=== PATIENT | male | born 1950 | race Caucasian/White ===

== ENCOUNTER 2025-02-15 07:26 | Inpatient (IN) | payer OTHER, MEDICARE ==
[2025-02-15 07:38] LABS: Glucose,Whole Blood 98 mg/dL (70-110)
--- NOTE | 2025-02-15 08:05 | ED ---
General Adult HPI - General Chief complaint: Neuro Symptoms/Deficit Stated complaint: off balance Time Seen by Provider: 02/15/25 07:43 Source: patient, family, EMS, RN notes reviewed Mode of arrival: EMS Limitations: no limitations - History of Present Illness Initial comments: Patient is a 74-year-old male present to the emergency department with concerns for being off balance. Last known well was last night. Patient has had 3 falls today without significant injury. Patient has abrasion to left elbow. Last tetanus immunization was 2 years ago. Patient has had intermittent confusion. Patient has had some slurred speech. Nurse was concern for some leg drift and triage. Patient is having difficulty walking. - Related Data Allergies Allergy/AdvReac Type Severity Reaction Status Date / Time No Known Allergies Allergy Verified 02/15/25 07:41 Review of Systems ROS Statement: Those systems with pertinent positive or pertinent negative responses have been documented in the HPI. ROS Other: All systems not noted in ROS Statement are negative. Constitutional: Denies: fever Eyes: Denies: eye pain ENT: Denies: ear pain Respiratory: Denies: dyspnea Cardiovascular: Denies: chest pain Neurological: Reports: as per HPI, confusion, abnormal gait. Denies: headache, weakness Past Medical History Past Medical History: Diabetes Mellitus Smoking Status: Former smoker Past Alcohol Use History: None Reported Past Drug Use History: None Reported General Exam Limitations: no limitations General appearance: alert, in no apparent distress Head exam: Present: atraumatic Eye exam: Present: normal appearance, PERRL, EOMI, nystagmus (Horizontal) ENT exam: Present: normal exam Neck exam: Present: normal inspection. Absent: tenderness Respiratory exam: Present: normal lung sounds bilaterally Cardiovascular Exam: Present: regular rate, normal rhythm GI/Abdominal exam: Present: soft. Absent: tenderness Extremities exam: Present: normal inspection, full ROM. Absent: tenderness Neurological exam: Present: alert, oriented X3, CN II-XII intact. Absent: motor sensory deficit Expanded Neurological exam: Present: ataxia, protecting the airway, other (Minimal slurred speech. Horizontal nystagmus. Difficulty with finger-nose testing on the left) Patient oriented to: Present: person, place, time Cranial nerves: EOM's Intact: Normal Cerebellar function: Finger to Nose: Abnormal Left Sensory exam: Upper Extremity Light Touch: Normal, Lower Extremity Light Touch: Normal Motor strength exam: RUE: 5, LUE: 5, RLE: 5, LLE: 5 Eye Response: (4) open spontaneously Motor Response: (6) obeys commands Verbal Response: (5) oriented Psychiatric exam: Present: normal affect, normal mood Skin exam: Present: abrasion Course Vital Signs 02/15/25 07:32 Temperature 97.9 F Pulse Rate 76 Respiratory 18 Rate Blood Pressure 120/80 O2 Sat by Pulse 96 Oximetry EKG Findings - EKG Results: EKG: interpreted by ERMD, sinus rhythm, normal axis, normal QRS, normal ST/T Medical Decision Making - Medical Decision Making 8:10 AM Case discussed with Dr. Valadez who agrees patient is not a candidate for tenecteplase. Risks felt to outweigh the benefits. Last known well is greater than 4.5 hours. Low NIH. He does recommend aspirin and Lipitor. Was pt. sent in by a medical professional or institution (, PA, SKILLED HELPER, urgent care, hospital, or half-way...) When possible be specific @ -No Did you speak to anyone other than the patient for history (EMS, parent, family, police, friend...)? What history was obtained from this source @ -Daughter is present and helps provide history including patient's symptoms as patient is a poor historian Did you review nursing and triage notes (agree or disagree)? Why? @ -I reviewed and agree with nursing and triage notes Were old charts reviewed (outside hosp., previous admission, EMS record, old EKG, old radiological studies, urgent care reports/EKG's, half-way records)? Report findings @ -No old charts were reviewed Differential Diagnosis (chest pain, altered mental status, abdominal pain women, abdominal pain men, vaginal bleeding, weakness, fever, dyspnea, syncope, headache, dizziness, GI bleed, back pain, seizure, CVA, palpatations, mental health, musculoskeletal)? @ -Differential Altered Mental Status: Hypoglycemia, DKA, hypercapnia, ETOH, overdose, CO poisoning, trauma, myxedema coma, HTN encephalopathy, infection, encephalitis, psychosis, intercranial hemorrhage, hepatic encephalopathy, meningitis, CVA, this is not meant to be an all-inclusive list EKG interpreted by me (3pts min.). @ -As above X-rays interpreted by me (1pt min.). @ -Chest x-ray shows no acute process CT interpreted by me (1pt min.). @ -CT scan of the brain without acute abnormality U/S interpreted by me (1pt. min.). @ -None done What testing was considered but not performed or refused? (CT, X-rays, U/S, labs)? Why? @ -None What meds were considered but not given or refused? Why? @ -See above Did you discuss the management of the patient with other professionals (professionals i.e. , PA, SKILLED HELPER, lab, RT, psych nurse, social insurance analyst, communications lead, teacher, ammunition officer, housing case manager)? Give summary @ -See above, case also discussed with Dr. Diaz who will admit covering Dr. Marquez Was smoking cessation discussed for >3mins.? @ -No Was critical care preformed (if so, how long)? @ -31 minutes critical care time Were there social determinants of health that impacted care today? How? (Homelessness, low income, unemployed, alcoholism, drug addiction, transportat ion, low edu. Level, literacy, decrease access to med. care, correction, rehab)? @ -No Was there de-escalation of care discussed even if they declined (Discuss DNR or withdrawal of care, Hospice)? DNR status @ -No What co-morbidities impacted this encounter? (DM, HTN, Smoking, COPD, CAD, Cancer, CVA, ARF, Chemo, Hep., AIDS, mental health diagnosis, sleep apnea, morbid obesity)? @ -None Was patient admitted / discharged? Hospital course, mention meds given and route, prescriptions, significant lab abnormalities, going to OR and other pertinent info. @ -Patient presents with several symptoms. Patient is off balance with several falls this morning. Patient has had some mild speech slurring which continues at times. Patient has had some intermittent confusion. Patient had difficulty with finger-nose testing on the left. Patient is not a tenecteplase candidate. Patient will be admitted with neurology consult. Patient reevaluated. Patient and family updated. Admission orders written. Undiagnosed new problem with uncertain prognosis? @ -No Drug Therapy requiring intensive monitoring for toxicity (Heparin, Nitro, Insulin, Cardizem)? @ -No Were any procedures done? @ -No Diagnosis/symptom? @ -CVA Acute, or Chronic, or Acute on Chronic? @ -Acute Uncomplicated (without systemic symptoms) or Complicated (systemic symptoms)? @ -Default Side effects of treatment? @ -No Exacerbation, Progression, or Severe Exacerbation? @ -No Poses a threat to life or bodily function? How? (Chest pain, USA, MS, pneumonia, PE, COPD, DKA, ARF, appy, cholecystitis, CVA, Diverticulitis, Homicidal, Suicidal, threat to staff... and all critical care pts) @ -Threat to neurological function - Lab Data Result diagrams: 02/15/25 08:05 02/15/25 08:05 Lab Results 02/15/25 02/15/25 02/15/25 Range/Units 07:36 08:05 08:05 WBC 8.5 (3.8-10.6) k/uL RBC 4.13 L (4.30-5.90) m/uL Hgb 13.2 (13.0-17.5) gm/dL Hct 39.6 (39.0-53.0) % MCV 95.9 (80.0-100.0) fL MCH 31.9 (25.0-35.0) pg MCHC 33.3 (31.0-37.0) g/dL RDW 12.3 (11.5-15.5) % Plt Count 215 (150-450) k/uL MPV 7.9 Neutrophils % 74 % Lymphocytes % 14 % Monocytes % 6 % Eosinophils % 3 % Basophils % 0 % Neutrophils # 6.3 (1.3-7.7) k/uL Lymphocytes # 1.2 (1.0-4.8) k/uL Monocytes # 0.5 (0-1.0) k/uL Eosinophils # 0.2 (0-0.7) k/uL Basophils # 0.0 (0-0.2) k/uL PT 10.7 (10.0-12.5) sec INR 1.0 (<1.2) APTT 25.7 (22.0-30.0) sec Sodium (137-145) mmol/L Potassium (3.5-5.1) mmol/L Chloride (98-107) mmol/L Carbon Dioxide (22-30) mmol/L Anion Gap mmol/L BUN (9-20) mg/dL Creatinine (0.66-1.25) mg/dL Est GFR (CKD-EPI)AfAm (>60 ml/min/1.73 sqM) Est GFR (CKD-EPI)NonAf (>60 ml/min/1.73 sqM) Glucose (74-99) mg/dL POC Glucose (mg/dL) 98 (70-110) mg/dL POC Glu Brusher Tender ID Jake Brittney Calcium (8.4-10.2) mg/dL Total Bilirubin (0.2-1.3) mg/dL AST (17-59) U/L ALT (4-49) U/L Alkaline Phosphatase (38-126) U/L Creatine Kinase (55-170) U/L Total Protein (6.3-8.2) g/dL Albumin (3.5-5.0) g/dL 02/15/25 Range/Units 08:05 WBC (3.8-10.6) k/uL RBC (4.30-5.90) m/uL Hgb (13.0-17.5) gm/dL Hct (39.0-53.0) % MCV (80.0-100.0) fL MCH (25.0-35.0) pg MCHC (31.0-37.0) g/dL RDW (11.5-15.5) % Plt Count (150-450) k/uL MPV Neutrophils % % Lymphocytes % % Monocytes % % Eosinophils % % Basophils % % Neutrophils # (1.3-7.7) k/uL Lymphocytes # (1.0-4.8) k/uL Monocytes # (0-1.0) k/uL Eosinophils # (0-0.7) k/uL Basophils # (0-0.2) k/uL PT (10.0-12.5) sec INR (<1.2) APTT (22.0-30.0) sec Sodium 136 L (137-145) mmol/L Potassium 4.8 (3.5-5.1) mmol/L Chloride 102 (98-107) mmol/L Carbon Dioxide 25 (22-30) mmol/L Anion Gap 9 mmol/L BUN 23 H (9-20) mg/dL Creatinine 1.74 H (0.66-1.25) mg/dL Est GFR (CKD-EPI)AfAm 43 (>60 ml/min/1.73 sqM) Est GFR (CKD-EPI)NonAf 38 (>60 ml/min/1.73 sqM) Glucose 100 H (74-99) mg/dL POC Glucose (mg/dL) (70-110) mg/dL POC Glu Brusher Tender ID Calcium 9.1 (8.4-10.2) mg/dL Total Bilirubin 0.7 (0.2-1.3) mg/dL AST 19 (17-59) U/L ALT 20 (4-49) U/L Alkaline Phosphatase 85 (38-126) U/L Creatine Kinase 83 (55-170) U/L Total Protein 6.7 (6.3-8.2) g/dL Albumin 4.0 (3.5-5.0) g/dL Disposition Clinical Impression: Cerebrovascular accident (CVA) Disposition: ADMITTED IP TO THIS HOSP Is patient prescribed a controlled substance at d/c from ED?: No Referrals: Chon Marquez MD [Primary Care Provider] - 1-2 days Time of Disposition: 08:59
[2025-02-15 08:16] LABS: Basophils % (A) 0 %; Eosinophils # (A) 0.2 k/uL (0-0.7); Eosinophils % (A) 3 %; HCT 39.6 % (39.0-53.0); HGB 13.2 gm/dL (13.0-17.5); Lymphocytes # (A) 1.2 k/uL (1.0-4.8); Lymphocytes % (A) 14 %; MCH 31.9 pg (25.0-35.0); MCHC 33.3 g/dL (31.0-37.0); MCV 95.9 fL (80.0-100.0); Mean Platelet Volume 7.9; Monocytes # (A) 0.5 k/uL (0-1.0); Monocytes % (A) 6 %; Neutrophils # (A) 6.3 k/uL (1.3-7.7); Neutrophils % (A) 74 %; Platelet Count 215 k/uL (150-450); RBC 4.13 m/uL (4.30-5.90); RDW 12.3 % (11.5-15.5); WBC 8.5 k/uL (3.8-10.6)
--- NOTE | 2025-02-15 08:23 | CT ---
EXAMINATION TYPE: CT brain wo con DATE OF EXAM: 02/15/2025 COMPARISON: NONE CLINICAL INDICATION: Male, 74 years old with history of Neuro deficit, acute, stroke suspected, ams TECHNIQUE: CT scan of the head is performed without contrast. CT DLP: 1137.3 mGycm. Automated Exposure Control for Dose Reduction was Utilized. FINDINGS: There is no acute intracranial hemorrhage or midline shift identified. There is mild-to-m oderate diffuse ventricular and sulcal prominence consistent with diffuse age-related cerebral atroph y. There is moderate low-attenuation in the periventricular white matter consistent with chronic sma ll vessel ischemic change patient this age. Scleral calcifications bilaterally are present. The visu alized sinuses are clear. IMPRESSION: No acute intracranial hemorrhage or midline shift. If clinical concern for acute stroke persists further investigation with MRI study would be warranted . [facility], , 02/15/2025 8:21 AM
[2025-02-15 08:27] LABS: ALT 20 U/L (4-49); AST 19 U/L (17-59); African American GFR (CKD) 43 (>60 ml/min/1.73 sqM); Alkaline Phosphatase 85 U/L (38-126); Anion Gap 9 mmol/L; Blood Urea Nitrogen 23 mg/dL (9-20); Calcium 9.1 mg/dL (8.4-10.2); Carbon Dioxide 25 mmol/L (22-30); Chloride 102 mmol/L (98-107); Creatine Kinase 83 U/L (55-170); Glucose 100 mg/dL (74-99); Non-African American GFR(CKD) 38 (>60 ml/min/1.73 sqM); Partial Thromboplastin Time 25.7 sec (22.0-30.0); Potassium 4.8 mmol/L (3.5-5.1); Prothrombin Time 10.7 sec (10.0-12.5); Sodium 136 mmol/L (137-145); Total Bilirubin 0.7 mg/dL (0.2-1.3); Total Protein 6.7 g/dL (6.3-8.2)
--- NOTE | 2025-02-15 08:34 | XR ---
EXAMINATION TYPE: XR chest 2V DATE OF EXAM: 02/15/2025 CLINICAL INDICATION: Male, 74 years old with history of altered mental status, TECHNIQUE: Frontal and lateral views of the chest are obtained. COMPARISON: None FINDINGS: There is no focal air space opacity, pleural effusion, or pneumothorax seen. The cardiac silhouette size is upper limits of normal with atherosclerotic thoracic aorta. The osseous structur es are intact. IMPRESSION: No acute cardiopulmonary process. [facility], , 02/15/2025 8:32 AM
--- NOTE | 2025-02-15 08:46 | CT ---
EXAMINATION TYPE: CT angio head neck DATE OF EXAM: 02/15/2025 COMPARISON: NONE CLINICAL INDICATION: Male, 74 years old with history of Neuro deficit, acute, stroke suspected, AMS, TECHNIQUE: CTA scan of the head and neck is performed with IV Contrast, patient injected with 65 ml mL of Isovue 370, axial images are obtained, coronal and sagittal reformatted images are reviewed. 3D reconstructed images are created on an independent workstation and reviewed. NASCET criteria was use d in interpretation of this exam? CT DLP: 597.4 mGycm. Automated Exposure Control for Dose Reduction was Utilized. FINDINGS: Vertebral arteries: The vertebral arteries are patent. Vertebral artery dominance: Left Basilar artery: The basilar artery is intact. Internal Carotid arteries: Mild peripheral distal plaque bilaterally. KIRAN: Absent right A1 segment with filling of the right A2 segment due to patent anterior communicatin g artery. ACOM: Present without evidence of aneurysm. MCA: Patent with no evidence of aneurysm. LEAD JANITOR: Patent with no evidence of aneurysm. PCOM: Hypoplastic bilaterally. Dural sinuses: Patent. CTA NECK: Right Carotid System: The common carotid artery and external carotid artery are patent. The carotid bifurcation demonstrate s no evidence of hemodynamically significant stenosis. Jxlk-sp-[id number] peripheral mixed plaque is pr esent. The remaining portions of the internal carotid artery demonstrate normal size without signific ant narrowing. Left Carotid System: The common carotid artery and external carotid artery are patent. The carotid bifurcation demonstrate s no evidence of hemodynamically significant stenosis. Mild peripheral mixed plaque is present. The r emaining portions of the internal carotid artery demonstrate normal size without significant narrowin g. Vertebral arteries are patent without evidence hemodynamically significant stenosis. There is a three-vessel aortic arch. The origins of the great vessels are patent. No evidence of hemo dynamically significant stenosis. There is 4.5 cm heterogeneous enhancing right thyroid nodule on coronal image 30 which warrants follo w-up IMPRESSION: No evidence of significant stenosis at the carotid bifurcations. No evidence of large vessel occlusion or intracranial aneurysm. Incidental 4.5 cm right thyroid nodule. Nonemergent thyroid ultrasound follow-up is advised to furthe r evaluate and characterize. [facility], , 02/15/2025 8:44 AM
[2025-02-15] MEDS: ASPIRIN 325 MG TAB PO STA (09:44)
[2025-02-15] MEDS: SODIUM CHLORIDE 0.9% 1,000 ML IV SCH (09:44)
--- NOTE | 2025-02-15 13:11 | P.CNNES ---
History of Present Illness Consult date: 02/15/25 Requesting physician: Kali Agarwal Reason for Consult: cva concern History of Present Illness: This is a 74-year-old gentleman who presented to hospital because of fall. He is accompanied with his granddaughter who helps with some of the history. He stated that today he was trying to get something from bed and as he was trying to stand up he got dizzy and went down he did not think he lost consciousness but per the granddaughter maybe he did lose consciousness for 1 to 2 minutes. Patient denies any urinary incontinence but according to the granddaughter according to his he did have urinary incontinence. Patient felt his legs were weak and he did not have the strength as well as hands were weak and could not pull himself. According to granddaughter he fell 3 times. It seems that he fell a year ago. Unknown cause what caused his fall. But according the patient his falls is due to his underlying medical condition because of his diabetes kidney insufficiency. No history of stroke no history of seizures. Patient does take aspirin 81 mg. According to granddaughter today when he was doing the [id number] on the left hand was off but now overall he is doing better. Patient denies any tobacco use any alcohol use or any illicit drug use. Some of the workup during this hospital visit consisted of: Reviewed the rest of the lab workup. CT of the head is reported as no acute intracranial hemorrhage or midline shift. I personally reviewed the CT and I agree with the report. CT angiography of the head and neck is reported as no evidence of significant stenosis at the carotid bifurcation. No evidence of large vessel occlusion or intracranial aneurysm. Incidental 4.5 cm right thyroid nodule. Review of Systems As per HPI. Past Medical History Past Medical History: Diabetes Mellitus Smoking Status: Former smoker Past Alcohol Use History: None Reported Past Drug Use History: None Reported Medications and Allergies Home Medications Medication Instructions Recorded Confirmed Type Albuterol Sulfate [Albuterol 1 puff PO RT-Q4H PRN 02/15/25 02/15/25 History Sulfate Hfa] Doxepin [SINEquan] 20 mg PO HS 02/15/25 02/15/25 History Finasteride [Proscar] 5 mg PO DAILY 02/15/25 02/15/25 History Gabapentin [Neurontin] 300 mg PO TID 02/15/25 02/15/25 History Insulin Aspart [NovoLOG Flexpen] 8 - 10 units SQ AC-TID 02/15/25 02/15/25 History Insulin Glargine,Hum.rec.anlog 35 units SQ HS 02/15/25 02/15/25 History [Lantus Solostar Pen] Ketorolac 0.5% Ophth Soln [Acular 1 drops RIGHT EYE QID 02/15/25 02/15/25 History 0.5%] Levothyroxine Sodium [Synthroid] 50 mcg PO DAILY 02/15/25 02/15/25 History Losartan [Cozaar] 25 mg PO DAILY 02/15/25 02/15/25 History Rosuvastatin Calcium [Crestor] 20 mg PO DAILY 02/15/25 02/15/25 History SITagliptin [Zituvio] 50 mg PO DAILY 02/15/25 02/15/25 History Sertraline [Zoloft] 200 mg PO DAILY 02/15/25 02/15/25 History Tamsulosin HCl [Flomax] 0.4 mg PO DAILY 02/15/25 02/15/25 History Zolpidem [Ambien] 10 mg PO HS 02/15/25 02/15/25 History Allergies Allergy/AdvReac Type Severity Reaction Status Date / Time empagliflozin Allergy Unknown Verified 02/15/25 10:21 nifedipine Allergy Unknown Verified 02/15/25 10:21 pioglitazone [From Actos] Allergy Unknown Verified 02/15/25 10:21 Physical Examination - Vital Signs Vital Signs: Vital Signs Temp Pulse Resp BP Pulse Ox 02/15/25 11:40 62 16 121/92 98 02/15/25 11:00 66 18 120/83 98 02/15/25 10:00 63 18 135/89 96 02/15/25 09:00 61 16 136/91 96 02/15/25 08:30 67 14 119/83 97 02/15/25 07:32 97.9 F 76 18 120/80 96 Intake and Output 02/14/25 02/15/25 02/15/25 22:59 06:59 14:59 Other: Weight 99.79 kg GENERAL: The patient is lying in bed and is not in acute distress. NEUROLOGICAL: Higher mental function: The patient is awake, alert, oriented to self, place and time. Patient is following commands. No aphasia and no neglect. Cranial nerves: The pupils are round, equal and reactive to light and accommodation. Visual jose are full to confrontation throughout. Extraocular movement is intact no nystagmus is noted. Facial sensation is normal to touch throughout. The facial strength is normal throughout. Hearing is severely hearing loss bilaterally to hand rub. Tongue is midline and moved mzrj-[id number] without any difficulty. No dysarthria is noted. Shoulder shrug is normal bilaterally. Motor: The strength is 5 over 5 throughout. Normal tone and bulk. Cerebellum: Normal finger to nose bilaterally. Sensation: Sensation is normal to touch throughout. Reflexes (right/left): 2+ throughout. Plantars are downgoing bilaterally. Results - Laboratory Findings CBC and BMP: 02/15/25 08:05 02/15/25 08:05 Abnormal Lab Findings: Abnormal Labs 02/15/25 02/15/25 08:05 08:05 RBC 4.13 L Sodium 136 L BUN 23 H Creatinine 1.74 H Glucose 100 H Assessment and Plan Assessment: Patient is a 74-year-old gentleman who presents emergency department because of a fall and according to the granddaughter he lost consciousness for 2 minutes. Seems that he had urinary continence. He had 2 further falls. He had leg weakness as well as hand weakness. No history of seizures. According to grand daughter earlier today while in the ED the [id number] on the left was off. But currently he is doing better. Recurrent falls with arm weakness and hand weakness with loss of consciousness and urinary incontinence: Unknown exact cause. Hypertension Chronic kidney disease Diabetes mellitus Plan: Ordered MRI of the brain I ordered a routine EEG 2D echo, lipid panel is ordered and is pending Patient started on aspirin 325 daily by the ED team. Prior to this the patient was on aspirin at home. He is also started on Lipitor 80 mg nightly by the ED team I will hold off any dual antiplatelet until the rest of the workup Continue neurochecks Cardiac monitoring PT OT and CHEST PAINTING LEADER are consulted Ordered Vitamin B12, folate, TSH. Will defer the rest of the medical management to primary and other specialist For DVT prophylaxis I started the patient on subcu heparin 5000 units every 12 hours Plan discussed with the patient and his granddaughter who is at bedside Thank you for the consultation peer Time with Patient: Greater than 30
[2025-02-15] MEDS ORDERED: ALBUTEROL NEBULIZED 2.5 MG/3 ML INHALATION PRN (14:25)
[2025-02-15] MEDS ORDERED: DEXTROSE 50% SYRINGE 50 ML IVP PRN ×2 (14:26)
[2025-02-15] MEDS: HEPARIN SODIUM,PORCINE 5,000 UNIT/ML 1 ML VIAL SQ SCH (14:32)
[2025-02-15] MEDS: KETOROLAC 0.5% OPHTH DROPS 5 ML BTL RIGHT EYE SCH (17:01)
[2025-02-15 17:19] LABS: Glucose,Whole Blood 115 mg/dL (70-110)
[2025-02-15] MEDS: INSULIN LISPRO (HumaLOG) 100 UNIT/ML 10 mL VL SQ SCH (17:38)
[2025-02-15] MEDS: THIAMINE 100 MG TAB PO SCH (19:48)
[2025-02-15 20:33] LABS: Glucose,Whole Blood 130 mg/dL (70-110)
[2025-02-15] MEDS: ZOLPIDEM 5 MG TAB PO SCH (20:38)
[2025-02-15] MEDS: ATORVASTATIN 80 MG TAB PO SCH (20:39)
[2025-02-15] MEDS: INSULIN GLARGINE (LANTUS) 100 UNIT/ML SYR SQ SCH (21:06)
[2025-02-15] MEDS: ACETAMINOPHEN TAB 325 MG TAB PO PRN (21:06)
--- NOTE | 2025-02-15 21:33 | HP ---
HISTORY AND PHYSICAL CHIEF COMPLAINT: Ataxia as well as fall. HISTORY OF PRESENT ILLNESS: This 74-year-old gentleman with a past medical history of multiple medical problems, diabetes mellitus type 2, peripheral neuropathy, and back pain, being followed by Dr. Marquez in the outpatient of walking, which is increasing over the past few days. The patient also had falls. Also, the patient has some excoriation on the right elbow. Creatinine is elevated indicating acute renal failure. The patient admitted for further evaluation and treatment. There is no history of any fever, rigors, or chills at this time. Neurology consultation has been sought. The patient is ataxic. PAST MEDICAL HISTORY: Reviewed include diabetes mellitus type 2 and history of nicotine dependence. HOME MEDICATIONS: Reviewed include Ketoralac. Dose and rest of medications reviewed. ALLERGIES: Reviewed include empagliflozin. FAMILY HISTORY: No history of heart disease or strokes in the family. SOCIAL HISTORY: Previous history of smoking. REVIEW OF SYSTEM: A 14-point review of systems negative except as mentioned earlier. PHYSICAL EXAMINATION: VITAL SIGNS: Pulse 66, blood pressure 110/80, and respirations 18. CHEST: Clear to auscultation. CARDIOVASCULAR: S1, S2. ABDOMEN: Soft. NERVOUS SYSTEM: Mild diffuse weakness and features of peripheral neuropathy. Ataxic. Romberg sign is positive. SKIN: No ulcer. JOINTS: No active deforming arthropathy. LABORATORY DATA: Sodium 136, creatinine 1.75. ASSESSMENT: 1. Falls and ataxia, rule out acute stroke versus peripheral neuropathy. 2. History of degenerative joint disease and lumbar pain, rule out lumbar lesions. 3. Acute renal failure with acute tubular necrosis. 4. Diabetes type 2. 5. Hyponatremia. RECOMMENDATIONS AND DISCUSSION: This 74-year-old gentleman, who presented with multiple complex medical issues. We will monitor the patient closely. Continue the current management and treatment. MRI of the brain, EEG, and 2D echo. Full cardiovascular workup is recommended. Prognosis guarded. Resume the home medication, antiplatelet agents. We will supplement vitamins also. Check a B12 and folic acid levels also. If the patient is not improving and all the tests are negative, lumbar spine, CAT scan, or MRI may be considered. MMODL / IJN: [id number] /
[2025-02-16] MEDS: LEVOTHYROXINE 50 MCG TAB PO SCH (06:29)
[2025-02-16 07:24] LABS: Basophils # (A) 0.1 k/uL (0-0.2); Basophils % (A) 1 %; Eosinophils # (A) 0.3 k/uL (0-0.7); Eosinophils % (A) 4 %; HCT 41.8 % (39.0-53.0); HGB 13.5 gm/dL (13.0-17.5); Lymphocytes # (A) 1.5 k/uL (1.0-4.8); Lymphocytes % (A) 20 %; MCH 31.6 pg (25.0-35.0); MCHC 32.3 g/dL (31.0-37.0); MCV 97.8 fL (80.0-100.0); Mean Platelet Volume 7.8; Monocytes # (A) 0.5 k/uL (0-1.0); Monocytes % (A) 7 %; Neutrophils # (A) 5.3 k/uL (1.3-7.7); Neutrophils % (A) 68 %; Platelet Count 230 k/uL (150-450); RBC 4.27 m/uL (4.30-5.90); RDW 12.4 % (11.5-15.5); WBC 7.8 k/uL (3.8-10.6)
[2025-02-16 07:32] LABS: African American GFR (CKD) 43 (>60 ml/min/1.73 sqM); Anion Gap 5 mmol/L; Blood Urea Nitrogen 25 mg/dL (9-20); Calcium 9.3 mg/dL (8.4-10.2); Carbon Dioxide 29 mmol/L (22-30); Chloride 103 mmol/L (98-107); Glucose 63 mg/dL (74-99); Non-African American GFR(CKD) 37 (>60 ml/min/1.73 sqM); Potassium 4.8 mmol/L (3.5-5.1); Sodium 137 mmol/L (137-145)
[2025-02-16 07:56] LABS: Glucose,Whole Blood 76 mg/dL (70-110)
[2025-02-16] MEDS ORDERED: NON FORMULARY DRUG (Rosuvastatin Calcium [Crestor] 40 MG Tablet) PO SCH (09:00)
[2025-02-16] MEDS: ASPIRIN 325 MG TAB PO SCH (09:43)
[2025-02-16] MEDS: FINASTERIDE 5 MG TAB PO SCH (09:43)
[2025-02-16] MEDS: TAMSULOSIN 0.4 MG CAP.ER.24H PO SCH (09:43)
[2025-02-16] MEDS: LINAGLIPTIN 5 MG TABLET PO SCH (09:43)
[2025-02-16] MEDS: SERTRALINE 100 MG TAB PO SCH (09:43)
[2025-02-16 10:29] LABS: Chol/HDL Ratio 4.07 Ratio
--- NOTE | 2025-02-16 10:42 | MR ---
EXAMINATION TYPE: MR brain wo con DATE OF EXAM: 02/16/2025 10:14 AM COMPARISON: 02/14/2025. CLINICAL INDICATION: Male, 74 years old with history of arm and leg weakness. cva; PHH, Recurrent fal ls with arm and leg weakness. TECHNIQUE: Multi planar, multi sequence imaging was performed through the brain including: T1, T2, In version recovery, Diffusion weighted imaging, and gradient echo imaging. No gadolinium was given. FINDINGS: Mild cerebral atrophy with proportional dilation of ventricular system. Tiny right basal ganglia la cunar injury versus prominent perivascular space measuring 3 mm. Scattered foci of high T2 signal int ensity are seen within the periventricular white matter. Midline structures show no abnormality. Diff usion-weighted imaging shows no evidence of restricted diffusion. The susceptibility weighted images do not reveal any evidence for micro-hemorrhage. The bone marrow signal is within normal limits. Paranasal sinuses and mastoid air cells: No significant paranasal sinus disease. Visualized orbits: Right aphakia IMPRESSION: 1. No evidence of intracranial mass or acute/subacute infarct. 2. Generalized atrophy changes in Nonspecific white matter changes, likely secondary to small vessel ischemic disease. [facility], , 02/16/2025 10:40 AM
[2025-02-16 12:20] LABS: Glucose,Whole Blood 139 mg/dL (70-110)
[2025-02-16] MEDS: MULTIVITAMINS, THERA 1 EACH TAB PO SCH (13:13)
[2025-02-16] MEDS: FOLIC ACID 1 MG TAB PO SCH (13:14)
[2025-02-16] MEDS ORDERED: MECLIZINE 25 MG TAB PO PRN (14:21)
--- NOTE | 2025-02-16 14:24 | P.PN ---
Subjective Progress Note Date: 02/16/25 I am following-up with patient and he stated he had brief episode of mild dizziness upon getting up and brief walking. Otherwise he fee back to baseline and feels drastically better compared to initial presentation. He stated at home his falls were due his dizziness. Objective - Vital Signs Vital signs: Vital Signs Temp 97.6 F 02/16/25 08:02 Pulse 86 02/16/25 11:04 Resp 18 02/16/25 11:04 BP 126/88 02/16/25 11:04 Pulse Ox 97 02/16/25 11:04 FiO2 Intake & Output 02/15/25 02/16/25 02/16/25 18:59 06:59 18:59 Weight 99.79 kg - Exam GENERAL: The patient is lying in bed and is not in acute distress. NEUROLOGICAL: Higher mental function: The patient is awake, alert, oriented to self, place and time. Patient is following commands. No aphasia and no neglect. Cranial nerves: The pupils are round, equal and reactive to light and accommodation. Visual jose are full to confrontation throughout. Extraocular movement is intact no nystagmus is noted. Facial sensation is normal to touch throughout. The facial strength is normal throughout. Hearing is moderate hearing loss bilaterally to hand rub. Tongue is midline and moved [id number] without any difficulty. No dysarthria is noted. Shoulder shrug is normal bilaterally. Motor: The strength is 5 over 5 throughout. Normal tone and bulk. Cerebellum: Normal finger to nose bilaterally. Sensation: Sensation is normal to touch throughout. Reflexes (right/left): 2+ throughout. Plantars are downgoing bilaterally. Some of the workup during this hospital visit consisted of: Orthostatic is negative. B12: 607 Folate: 11.4 HbA1c: 8.8 TSH: 1.70 CT of the head is reported as no acute intracranial hemorrhage or midline shift. I personally reviewed the CT and I agree with the report. CT angiography of the head and neck is reported as no evidence of significant stenosis at the carotid bifurcation. No evidence of large vessel occlusion or intracranial aneurysm. Incidental 4.5 cm right thyroid nodule. MRI Brain: No evidence of intracranial mass or acute/subacute infarct. Generalized atrophy changes in nonspecific white matter changes, likely secondary to small vessel ischemic disease. - Labs CBC & Chem 7: 02/16/25 06:55 02/16/25 06:55 Labs: Abnormal Lab Results - Last 24 Hours (Table) 02/15/25 02/15/25 02/16/25 Range/Units 17:18 20:31 06:55 RBC (4.30-5.90) m/uL BUN (9-20) mg/dL Creatinine (0.66-1.25) mg/dL Glucose (74-99) mg/dL POC Glucose (mg/dL) 115 H 130 H (70-110) mg/dL Hemoglobin A1c 8.8 H (<=6.0) % 02/16/25 02/16/25 02/16/25 Range/Units 06:55 06:55 12:19 RBC 4.27 L (4.30-5.90) m/uL BUN 25 H (9-20) mg/dL Creatinine 1.77 H (0.66-1.25) mg/dL Glucose 63 L (74-99) mg/dL POC Glucose (mg/dL) 139 H (70-110) mg/dL Hemoglobin A1c (<=6.0) % Assessment and Plan Assessment: Patient is a 74-year-old gentleman who presents emergency department because of a fall and according to the granddaughter he lost consciousness for 2 minutes. Seems that he had urinary continence. He had 2 further falls. He had leg weakness as well as hand weakness. No history of seizures. According to granddaughter earlier today while in the ED the [id number] on the left was off. But currently he is doing better. Recurrent falls with arm weakness and hand weakness with loss of consciousness and urinary incontinence--currently back to baseline. EEG is negative for seizure. MRI Brain is negative for acute process: Unsure exactly but probable due to vertigo leading to falls but cannot rule out diabetic neuropathy Hypertension Chronic kidney disease Diabetes mellitus Plan: Patient started on aspirin 325 daily by the ED team. Prior to this the patient was on aspirin at home. He is also started on Lipitor 80 mg nightly by the ED team I will hold off any dual antiplatelet so no indication from neurological perspective. Also because of recurrent falls there is increase risk for bleed with dual antiplatelets. I started the patient on Meclizine 25mg 1 tab tid PRN. Recommend patient to be evaluated as outpatient ENT for his vertigo. Regarding his concern of memory loss, recommend him following-up with neurologist as outpatient within 2-3 weeks and recommend detailed memory testing. Continue neurochecks Cardiac monitoring PT OT and [employer] are consulted Will defer the rest of the medical management to primary and other specialist For DVT prophylaxis On subcu heparin 5000 units every 12 hours Otherwise, no additional neurological work-up. Will sign off. Please reconsult if needed. Time with Patient: Less than 30
[2025-02-16 16:22] LABS: Glucose,Whole Blood 171 mg/dL (70-110)
--- NOTE | 2025-02-16 17:09 | CA ---
Transthoracic Echo Report Name: Austen Sadler Age: 74 Gender: M : 1950 Exam Date: 02/16/2025 14:24 Exam Location: [facility] Ht (in): 72 Wt (lb): 220 Ordering Physician: Kali Agarwal DO Attending/Referring Phys: Funeral [employer] Manager Mercedes Toscano RDCS Procedure CPT: Indications: Thrombus Cardiac Hx: Technical Quality: Technically difficult study Contrast 1: Total Dose (mL): Contrast 2: Total Dose (mL): MEASUREMENTS (Male / Female) Normal Values 2D ECHO LV Diastolic Diameter PLAX 4.3 cm 4.2 - 5.9 / 3.9 - 5.3 cm LV Systolic Diameter PLAX 2.9 cm IVS Diastolic Thickness 1.2 cm 0.6 - 1.0 / 0.6 - 0.9 cm LVPW Diastolic Thickness 1.0 cm 0.6 - 1.0 / 0.6 - 0.9 cm LV Relative Wall Thickness 0.5 RV Internal Dim ED PLAX 3.1 cm LA Systolic Diameter LX 3.6 cm 3.0 - 4.0 / 2.7 - 3.8 cm M-MODE Aortic Root Diameter MM 3.9 cm DOPPLER AV Peak Velocity 97.3 cm/s AV Peak Gradient 3.8 mmHg Mitral E Point Velocity 85.0 cm/s Mitral A Point Velocity 78.4 cm/s Mitral E to A Ratio 1.1 MV Deceleration Time 187.5 ms MV E' Velocity 8.9 cm/s Mitral E to MV E' Ratio 9.6 TR Peak Velocity 237.1 cm/s TR Peak Gradient 22.5 mmHg Right Ventricular Systolic Press 32.5 mmHg FINDINGS Left Ventricle Left ventricular ejection fraction is estimated at 50-55 %. Mildly increased septal wall thickness. Left ventricular cavity size normal. Right Ventricle Normal right ventricular size and function. Right ventricular systolic pressure within normal limits. Right Atrium Normal right atrial size. No right atrial thrombus or mass seen. Left Atrium Normal left atrial size. No left atrial thrombus or mass present. Mitral Valve Structurally normal mitral valve. Mitral annular calcification. Aortic Valve Trileaflet aortic valve. No aortic valve stenosis or regurgitation. Tricuspid Valve Structurally normal tricuspid valve. Trace to mild tricuspid regurgitation. Pulmonic Valve Pulmonic valve not well visualized. Pericardium No pericardial effusion. Left pleural effusion. Aorta Mild aortic dilatation at the level of the sinuses of valsalva 39 mm CONCLUSIONS Normal LV systolic function No obvious intracardiac thrombus on this study Mild aortic root dilatation Consider transesophageal echo if clinically indicated Previewed by: Dr. Sebastien Ann MD (Electronically Signed) Final Date: 16 February 2025 17:08
[2025-02-16 19:58] LABS: Glucose,Whole Blood 134 mg/dL (70-110)
--- NOTE | 2025-02-16 20:47 | US ---
EXAMINATION TYPE: US carotid duplex BILAT DATE OF EXAM: 02/16/2025 COMPARISON: CT 02/15/25 CLINICAL INDICATION: Male, 74 years old with history of cva symptoms; CVA symptoms Additional History: .... TECHNIQUE: Grayscale, color Doppler and spectral Doppler evaluation of the bilateral carotid systems and vertebral arteries. Indirect Doppler criteria was utilized. FINDINGS: EXAM MEASUREMENTS: RIGHT: Peak Systolic Velocity (PSV) cm/sec ----- Right CCA: 76.0 ----- Right ICA: 74.7 ----- Right ECA: 90.9 ICA/CCA ratio: 1.0 RIGHT: End Diastole cm/sec ----- Right CCA: 18.2 ----- Right ICA: 17.5 ----- Right ECA: 13.6 LEFT: Peak Systolic Velocity (PSV) cm/sec ----- Left CCA: 72.8 ----- Left ICA: 88.1 ----- Left ECA: 85.4 ICA/CCA ratio: 1.2 LEFT: End Diastole cm/sec ----- Left CCA: 19.5 ----- Left ICA: 21.6 ----- Left ECA: 11.9 VERTEBRALS (direction of flow): Right Vertebral: unable to visualize Left Vertebral: Antegrade Rhythm: Normal STRUCTURAL FITTER NOTES: slightly limited exam due to high bifurcation and neck girth plaque seen bilater al bifurcation. No significant velocity elevations seen Color Doppler imaging shows patency with blood flow throughout the carotid artery. Spectral waveforms are within normal limits. IMPRESSION: Right: Less than 50% stenosis of the carotid bifurcation. Left: Less than 50% stenosis of the carotid bifurcation. Criteria for Assigning % of Stenosis / Diameter reduction (Estimation based on the indirect measurements of the internal carotid artery velocities (ICA PSV). 1. Normal (no stenosis)=ICA PSV < 125 cm/s: ratio < 2.0: ICA EDV<40 cm/s. 2. Less than 50% stenosis=ICA PSV < 125 cm/s: ratio < 2.0: ICA EDV<40 cm/s. 3. 50 to 69% stenosis=ICA PSV of 125 to 230 cm/s: ration 2.0 ? 4.0: ICA EDV 40-100 cm/s. 4. Greater than 70% stenosis to near occlusion= ICA PSV > 230 cm/s: ratio > 4.0: ICA EDV > 100 cm/s. 5. Near occlusion= ICA PSV velocities may be low or undetectable: variable ratio and ICA EDV. 6. Total occlusion=unable to detect flow. [facility], , 02/16/2025 8:45 PM
--- NOTE | 2025-02-16 21:49 | P.PN ---
Subjective Progress Note Date: 02/16/25 Principal diagnosis: s/p fall Mr. Sadler is a 74-year-old male with a past medical history of diabetes admitted to the hospital with a chief complaint of fall. Patient states that he was quickly getting up from his bed and got dizzy and fell down. He did not lose his consciousness. Patient has been having recurrent falls and admitted for further evaluation. Today the patient is lying comfortably in the bed appears to be in no acute distress. He states that he has dizziness when he is quickly stands up from a sitting position. Otherwise he denies any weakness of his upper or lower extremities. Patient denies having any fevers chills. He denies having any nausea vomiting or abdominal pain. He denies having any chest pain difficulty in breathing. Patient's vitals are reviewed and within normal limits Patient's labs from today within normal limits Objective - Vital Signs Vital signs: Vital Signs Temp 97.9 F 02/16/25 16:00 Pulse 67 02/16/25 16:00 Resp 16 02/16/25 16:00 BP 146/84 02/16/25 16:00 Pulse Ox 98 02/16/25 16:00 FiO2 Intake & Output 02/16/25 02/16/25 02/17/25 06:59 18:59 06:59 Intake Total 120 Balance 120 Weight 99.79 kg Intake: Oral 120 Other: # Voids 2 - Exam PHYSICAL EXAM: General Impression: Alert and oriented x3, not in acute distress HEENT: pupils equal and reactive to light bilaterally, mucous membranes moist. Cardiovascular: Heart regular rate and rhythm Abdomen: abdomen soft, non-tender, non-distended, no organomegaly Neurological: no focal motor deficits noted Psych: Normal affect and mood - Labs CBC & Chem 7: 02/16/25 06:55 02/16/25 06:55 Labs: Abnormal Lab Results - Last 24 Hours (Table) 02/16/25 02/16/25 02/16/25 Range/Units 06:55 06:55 06:55 RBC 4.27 L (4.30-5.90) m/uL BUN 25 H (9-20) mg/dL Creatinine 1.77 H (0.66-1.25) mg/dL Glucose 63 L (74-99) mg/dL POC Glucose (mg/dL) (70-110) mg/dL Hemoglobin A1c 8.8 H (<=6.0) % 02/16/25 02/16/25 02/16/25 Range/Units 12:19 16:21 19:52 RBC (4.30-5.90) m/uL BUN (9-20) mg/dL Creatinine (0.66-1.25) mg/dL Glucose (74-99) mg/dL POC Glucose (mg/dL) 139 H 171 H 134 H (70-110) mg/dL Hemoglobin A1c (<=6.0) % Assessment and Plan Assessment: ASSESSMENT Recurrent falls Dizziness CKD Hypertension Diabetes mellitus PLAN Patient had CT of the head that was negative eventually CT angio of the head and neck within normal limits MRI of the brain done did not show evidence of acute/subacute infarct Neurology on board suggested holding of dual antiplatelet therapy due to history of recurrent falls Discussed with the patient about orthostatic dizziness and advised to slowly sit and then stand up from lying position PT OT on board Continue with statin DVT prophylaxis Further recommendations depending on the progress of the patient
--- NOTE | 2025-02-16 22:36 | EEG ---
ELECTROENCEPHALOGRAM REPORT CLINICAL HISTORY: This is a 74-year-old gentleman with recurrent falls. The video EEG is obtained to evaluate for seizure epileptiform activity. RELEVANT MEDICATIONS: 1. Ambien. 2. Zoloft. EEG TYPE: This is a routine 21-channel EEG with video using the 10/20 electrode placement system. DESCRIPTION: Wakefulness is only obtained. During awake state, the posterior-dominant rhythm consists of [id number] voltage of 9 to 10 hertz activity that is well modulated and well sustained. There is no physiological stage 2 sleep architecture. There is no focal slowing. Interictal and ictal is none. ACTIVATION PROCEDURE: Photic stimulation did not evoke a posterior driving response. There is no abnormality during the photic stimulation. Hyperventilation is not performed. CLINICAL INTERPRETATION: This is a normal routine EEG during awake state. There is no focal slowing, epileptiform discharge, or seizure on the EEG. A normal routine EEG does not rule out underlying epilepsy. Clinical correlation is recommended. GARY / SANDIN: [id number] /
[2025-02-17 06:05] LABS: Glucose,Whole Blood 118 mg/dL (70-110)
[2025-02-17 07:51] LABS: Basophils # (A) 0.1 k/uL (0-0.2); Basophils % (A) 1 %; Eosinophils # (A) 0.3 k/uL (0-0.7); Eosinophils % (A) 4 %; HCT 47.3 % (39.0-53.0); HGB 14.8 gm/dL (13.0-17.5); Lymphocytes # (A) 1.8 k/uL (1.0-4.8); Lymphocytes % (A) 24 %; MCH 31.2 pg (25.0-35.0); MCHC 31.3 g/dL (31.0-37.0); MCV 99.5 fL (80.0-100.0); Mean Platelet Volume 8.9; Monocytes # (A) 0.5 k/uL (0-1.0); Monocytes % (A) 7 %; Neutrophils # (A) 4.9 k/uL (1.3-7.7); Neutrophils % (A) 64 %; Platelet Count 258 k/uL (150-450); RBC 4.75 m/uL (4.30-5.90); RDW 12.6 % (11.5-15.5); WBC 7.7 k/uL (3.8-10.6)
[2025-02-17 07:59] LABS: African American GFR (CKD) 44 (>60 ml/min/1.73 sqM); Anion Gap 11 mmol/L; Blood Urea Nitrogen 28 mg/dL (9-20); Calcium 9.3 mg/dL (8.4-10.2); Carbon Dioxide 26 mmol/L (22-30); Chloride 100 mmol/L (98-107); Glucose 123 mg/dL (74-99); Non-African American GFR(CKD) 38 (>60 ml/min/1.73 sqM); Potassium 4.4 mmol/L (3.5-5.1); Sodium 137 mmol/L (137-145)
[2025-02-17 08:08] VITALS: BP 123/69; RESP 16; TEMP 97.9
[2025-02-17 08:55] VITALS: PULSE 86
[2025-02-17 11:57] LABS: Glucose,Whole Blood 183 mg/dL (70-110)
[2025-02-18 08:58] LABS: Vit B1(Thiamine) 104 ug/L (38-122)
== END 2025-02-17 13:09 | disposition home or self-care (01) | DRG 91 ==
LOC: EC 07:26 → 3SCARD 09:03
PROVIDERS: ADMIT Internal Medicine; ATTEND Internal Medicine
PROC: 4A10X4Z Monitoring of Central Nervous Electrical Activity, External Approach (ICD-10-PCS; principal; 2025-02-16)
DX: R27.0 Ataxia, unspecified (principal); N17.0 Acute kidney failure with tubular necrosis; E11.22 Type 2 diabetes mellitus with diabetic chronic kidney disease; E04.1 Nontoxic single thyroid nodule; I12.9 Hypertensive chronic kidney disease with stage 1 through stage 4 chronic kidney disease, or unspecified chronic kidney disease; N18.9 Chronic kidney disease, unspecified; E87.1 Hypo-osmolality and hyponatremia; E11.42 Type 2 diabetes mellitus with diabetic polyneuropathy; E11.51 Type 2 diabetes mellitus with diabetic peripheral angiopathy without gangrene; E11.9 Type 2 diabetes mellitus without complications; Z79.4 Long term (current) use of insulin; R32 Unspecified urinary incontinence; R29.6 Repeated falls; S50.312A Abrasion of left elbow, initial encounter; W19.XXXA Unspecified fall, initial encounter; Z79.82 Long term (current) use of aspirin; Z79.890 Hormone replacement therapy; Z79.899 Other long term (current) drug therapy; Z87.891 Personal history of nicotine dependence; Y92.099 Unspecified place in other non-institutional residence as the place of occurrence of the external cause; Z88.8 Allergy status to other drugs, medicaments and biological substances
CPT/HCPCS: 36415; 70450; 70496; 70498; 70551; 71046; 80048; 80053; 80061; 82550; 82607; 82746; 82747; 83036; 84425; 84443; 85025; 85610; 85730; 93005; 93306; 93880; 95816; 96360; 96361; 96372; 99291